=== PATIENT | female | born 1960 | race Caucasian/White ===

== ENCOUNTER 2016-10-19 09:28 | Inpatient (IN) | payer BC, MEDICARE ==
[2016-10-19] MEDS ORDERED: DUONEB 0.5-3 MG/3 ml Neb IH ONE (16:32)
[2016-10-19] MEDS: Sodium Chloride 0.9% 1000 ML 1,000 ML IV SCH (16:37)
[2016-10-19 17:01] LABS: BASOPHIL % 0.2 % (0.0-0.4); Granulocytes % 78.2 % (36.0-66.0); Lymphocytes % 12.9 % (24.0-44.0); Mean Cell Volume 92.5 fl (78-100); Mean Corpuscular Hemoglobin 29.9 pg (26-32); Mean Platelet Volume 8.7 fl (6-9.5); Monocytes % 7.7 % (0.0-12.0); Platelet Count 301 K/mm3 (150-450); Red Blood Count 4.28 M/mm3 (4.1-5.4); Red Cell Distribution Width 13.1 % (11.5-14.0); White Blood Count 9.4 K/mm3 (4.0-10.5)
[2016-10-19] MEDS: DUONEB 0.5-3 MG/3 ml Neb IH SCH (17:18)
[2016-10-19 17:42] LABS: ALBUMIN 3.7 g/dL (3.4-5.0); ALKALINE PHOSPHATASE 130 U/L (46-116); ANION GAP 11.7 MEQ/L (5-15); BLOOD UREA NITROGEN 10 mg/dL (9-20); CHLORIDE 98 mEq/L (98-107); Carbon Dioxide 30.8 mEq/L (21-32); Glucose 106 MG/DL (70-110); Potassium 3.8 mEq/L (3.5-5.1); SGOT/AST 20 U/L (15-37); SGPT/ALT 38 U/L (12-78); SODIUM 137 mEq/L (136-145); Total Protein 8.6 gm/dL (6.4-8.2)
[2016-10-19] MEDS: TYLENOL 325 MG PO PRN (18:16)
[2016-10-19] MEDS: Zithromax 500 MG/ 250 ML NaCl Premix 500 MG/250 ML IVPB IV SCH (18:22)
[2016-10-19] MEDS ORDERED: Zithromax 500 MG/ 250 ML NaCl Premix 500 MG/250 ML IVPB IV ONE (18:22)
[2016-10-19] MEDS ORDERED: PROVENTIL 2.5 MG/3 ML NEB IH PRN (19:55)
[2016-10-19] MEDS ORDERED: Ambien 10 MG PO SCH (22:00)
[2016-10-19] MEDS: MAG-OX 400 PO SCH (23:04)
[2016-10-19] MEDS: PATIENT OWN MEDICATION PO SCH ×4 (23:38→23:40)
[2016-10-20] MEDS: TYLENOL 325 MG PO PRN ×2 (00:10→19:57)
[2016-10-20] MEDS: DUONEB 0.5-3 MG/3 ml Neb IH SCH ×4 (05:49→19:57)
[2016-10-20] MEDS: MAG-OX 400 PO SCH ×2 (08:46→22:20)
[2016-10-20] MEDS: Wellbutrin XL 150 MG PO SCH (08:47)
[2016-10-20] MEDS: hydroDIURIL 25 MG PO SCH (08:47)
[2016-10-20] MEDS: Protonix 40MG Tablet PO SCH (08:47)
[2016-10-20] MEDS: ROCEPHIN 1 Gm-D5w 50 ml Bag** 1 G/50 ML IVPB IV SCH (08:48)
--- NOTE | 2016-10-20 08:51 | XRAY ---
Indication: Hypoxia. Acute bronchitis. Comparison: July 01, 2016. PA/lateral chest demonstrates new subtle bilateral perihilar interstitial alveolar opacities without consolidation/large effusion. Stable left lung calcified granuloma and spinal stimulator leads. Heart is not enlarged.
--- NOTE | 2016-10-20 09:38 | PCM.HP ---
History of Present Illness - Chief Complaint Chief Complaint: Hypoxia, Acute Bronchitis History of Present Illness: is a 56 year old female who has been sick since 10/06/16. Started with congestion and cough, cough prod of clear to yellow then green/mcgovern sputum. Having a hard time coughing things up now. Unaware of fever at home, but 100.3 when she saw TIMBER CUTTER yesterday in office. Directly admitted for pneumonia. Coughed all night. - Review of Systems Constitutional: Fever Respiratory: Cough, Short Of Breath Cardiac: Edema (chronic) All Other Systems: Reviewed and Negative Medications & Allergies Home Medications: Home Medication List Acetaminophen [Tylenol Extra Strength] 500 mg PO TID 03/31/14 [History Confirmed 10/19/16] Biotin [Efrain Biotin] 10,000 mcg PO DAILY 03/31/14 [History Confirmed 10/19/16] Bupropion HCl [Wellbutrin Xl] 300 mg PO DAILY 03/31/14 [History Confirmed ] Carboxymethylcellulos/Glycerin [[facility] Lubricating Eye Drops] 0.4 ml OP UD PRN [History Confirmed 10/19/16] Cephalexin Mh 500 mg [Keflex 500 mg] 500 mg PO UD PRN 03/31/14 [History Confirmed 10/19/16] Cholecalciferol (Vitamin D3) [Vitamin D-3] 1,000 unit PO BID 03/31/14 [History Confirmed 10/19/16] Duloxetine HCl [Cymbalta] 60 mg PO EVENING MEAL 03/31/14 [History Confirmed 09/30] Fluticasone Propionate [Flonase NASAL] 16 gm NS DAILY PRN 03/31/14 [ History Confirmed 10/19/16] Hydroxychloroquine Sulfate [Plaquenil] 200 mg PO BID 03/31/14 [History Confirmed 10/19/16] Hyoscyamine Sulfate 0.125 mg [Anaspaz 0.125 mg] 0.125 mg SL QID PRN [History Confirmed 10/19/16] Magnesium Oxide 400 mg [Mag-Ox 400] 400 mg PO BID 03/31/14 [History Confirmed 10/19/16] Menthol/Camphor [Mentholatum Ointment] 30 gm TP DAILY PRN PRN 03/31/14 [History Confirmed 10/19/16] Metaxalone [Skelaxin] 400 mg PO TID PRN 03/31/14 [History Confirmed 10/19/16] Multivitamin [Oio-Koldql-Ayzch] 1 each PO DAILY 03/31/14 [History Confirmed 09/30] Naratriptan HCl [Naratriptan] 2.5 mg PO DAILY PRN PRN 03/31/14 [History Confirmed 10/19/16] PANTOPRAZOLE 40 mg Tablet [Protonix 40MG Tablet] 40 mg PO DAILY 03/31/14 [ History Confirmed 10/19/16] Pilocarpine HCl [Salagen] 7.5 mg PO QID 03/31/14 [History Confirmed 10/19/16] Potassium Chloride 20 Meq Tab [Potassium Chloride 20 MEQ TABLET] 20 meq PO DAILY 03/31/14 [History Confirmed 10/19/16] Pravastatin Sodium 40 mg PO QHS 03/31/14 [History Confirmed 10/19/16] Saliva Substitution Combo No.5 [Neutrasal] 538 mg MM QID 03/31/14 [History Confirmed 10/19/16] Sodium Chloride [Saline [place]] 60 ml MC DAILY PRN PRN 03/31/14 [History Confirmed 10/19/16] Sodium Fluoride/Potassium Nit [Prevident 5000 Sensitive Paste] 100 ml DT BID [History Confirmed 10/19/16] Sumatriptan Succinate [Imitrex] 6 mg SQ DAILY PRN PRN 03/31/14 [History Confirmed 10/19/16] Timolol Maleate 0.25% Eye [Timolol 0.25% Opth Esperanza 5 ML] 1 drop OP BID [History Confirmed 10/19/16] Triamcinolone Acetonide 0.1% [Kenalog 0.1% Ointment] 15 gm TP BID PRN 03/31 [History Confirmed 10/19/16] Zolpidem Tartrate [Ambien Cr] 12.5 mg PO HS 03/31/14 [History Confirmed 10/19/16 ] Ferrous Sulfate 325 mg PO EVENING MEAL 05/22/14 [History Confirmed 10/19/16] Diclofenac Sodium [Voltaren] 2 gr TOP QID PRN 10/19/16 [History Confirmed ] Hydrochlorothiazide 12.5 mg PO DAILY 10/19/16 [History Confirmed 10/19/16] Sodium Chloride [Shahla-128] 1 g OP DAILY PRN PRN 10/19/16 [History Confirmed 09/30] Tamsulosin HCl 0.4 mg PO LUNCH 10/19/16 [History Confirmed 10/19/16] Allergies/Adverse Reactions: Allergies Allergy/AdvReac Type Severity Reaction Status Date / Time amoxicillin trihydrate Allergy Verified 05/22/14 17:13 [From Augmentin] benzonatate Allergy Verified 05/22/14 17:13 [From Tessalon Perles] cefazolin sodium [From Ancef] Allergy Verified 05/22/14 17:13 diflunisal [From Dolobid] Allergy Verified 05/22/14 17:13 oxycodone HCl [From Percocet] Allergy Verified 05/22/14 17:13 potassium clavulanate Allergy Verified 05/22/14 17:13 [From Augmentin] gabapentin [From Neurontin] AdvReac Verified 05/22/14 17:13 morphine AdvReac Verified 05/22/14 17:13 - Past Medical History Past Medical History: Yes Neurological History: Migraines ENT History: Glaucoma Cardiac History: High Cholesterol Respiratory History: Bronchitis, Pneumonia Endocrine Medical History: Other Musculoskelatal History: Arthritis, Fibromyalgia, Other GI Medical History: Irritable Bowel History: Other Pyscho-Social History: Depression, Other Reproductive Disorders: No Pertinent History Comment: HIP DYSPLASIA, arthralgia, myalgia. sjogrens, sometimes needs to cath herself d/t urinary retention (last done in 2011) [place] syndrome - Female History Are you now?: No - Past Surgical History Past Surgical History: Yes Neuro Surgical History: No Pertinent History Cardiac History: No Pertinent History Respiratory Surgery: No Pertinent History GI Surgical History: No Pertinent History Genitourinary Surgical Hx: No Pertinent History Musculskeletal Surgical Hx: Joint Replacement, Orthopedic Surgery Other Surgical History: STIMULATOR IMPLANT, sinus surgery, t&a, Hepatitis pt unsure what type . abd dilaudid pain pump. - Social History Smoking Status: Never smoker Exposure to second hand smoke: No Alcohol: None Drug Use: none - Physical Exam Vital Signs: Vital Signs - 24 hr Temp Pulse Resp BP Pulse Ox 10/20/16 08:00 20 10/20/16 07:06 98.0 F 80 20 133/60 94 L 10/20/16 04:30 80 28 H 94 L 10/20/16 04:00 65 19 94 L 10/20/16 00:00 98.3 F 93 H 20 138/67 94 L 10/19/16 20:00 98.1 F 92 H 19 120/60 98 10/19/16 19:58 89 22 96 10/19/16 17:21 99.1 F 105 H 24 137/69 89 L 10/19/16 16:30 96 H 24 88 L Oxygen-Last 24 hours O2 Percentage 4 Liters = 36% O2 Percentage 4 Liters = 36% O2 Percentage 4 Liters = 36% O2 Percentage 5 Liters = 40% O2 Percentage 4 Liters = 36% General Appearance: no apparent distress, other (coughs during exam) Neurologic Exam: alert, oriented x 3, cooperative Eye Exam: eyes nml inspection Neck Exam: normal inspection, non-tender, supple, No lymphadenopathy Respiratory Exam: normal breath sounds, wheezing (throughout), No crackles/rales , No rhonchi Cardiovascular Exam: regular rate/rhythm, normal heart sounds, No murmur Gastrointestinal/Abdomen Exam: soft, normal bowel sounds, mass (LLQ hard mass - pain pump), No tenderness, No distention Extremity Exam: pedal edema (trace LE edema bilat) Skin Exam: normal color, warm, dry Results - Labs Lab/Micro Results: Lab Results-Last 24 Hours 10/19/16 10/19/16 10/19/16 Range/Units 16:25 16:40 16:40 WBC 9.4 (4.0-10.5) K/mm3 RBC 4.28 (4.1-5.4) M/mm3 Hgb 12.8 (12.0-16.0) gm/dl Hct 39.6 (35-47) % MCV 92.5 (78-100) fl MCH 29.9 (26-32) pg MCHC 32.3 (32-36) g/dl RDW 13.1 (11.5-14.0) % Plt Count 301 (150-450) K/mm3 MPV 8.7 (6-9.5) fl Gran % 78.2 H (36.0-66.0) % Lymphocytes % 12.9 L (24.0-44.0) % Monocytes % 7.7 (0.0-12.0) % Eosinophils % 1.0 (0.00-5.0) % Basophils % 0.2 (0.0-0.4) % Basophils # 0.02 (0-0.4) Sodium 137 (136-145) mEq/L Potassium 3.8 (3.5-5.1) mEq/L Chloride 98 (98-107) mEq/L Carbon Dioxide 30.8 (21-32) mEq/L Anion Gap 11.7 (5-15) MEQ/L BUN 10 (9-20) mg/dL Creatinine 0.66 (0.55-1.30) mg/dl Estimated GFR > 60 ML/MIN Glucose 106 (70-110) MG/DL Lactic Acid 1.0 (0.4-2.0) Calcium 9.6 (8.5-10.1) mg/dL Total Bilirubin 0.40 (0.2-1.0) mg/dL AST 20 (15-37) U/L ALT 38 (12-78) U/L Alkaline Phosphatase 130 H (46-116) U/L NT-Pro-B Natriuret Pep 355 H (0-125) pg/ml Serum Total Protein 8.6 H (6.4-8.2) gm/dL Albumin 3.7 (3.4-5.0) g/dL Influenza Type A Ag (NEGATIVE) Influenza Type B Ag (NEGATIVE) RSV (PCR) (Negative) 10/19/16 Range/Units 16:40 WBC (4.0-10.5) K/mm3 RBC (4.1-5.4) M/mm3 Hgb (12.0-16.0) gm/dl Hct (35-47) % MCV (78-100) fl MCH (26-32) pg MCHC (32-36) g/dl RDW (11.5-14.0) % Plt Count (150-450) K/mm3 MPV (6-9.5) fl Gran % (36.0-66.0) % Lymphocytes % (24.0-44.0) % Monocytes % (0.0-12.0) % Eosinophils % (0.00-5.0) % Basophils % (0.0-0.4) % Basophils # (0-0.4) Sodium (136-145) mEq/L Potassium (3.5-5.1) mEq/L Chloride (98-107) mEq/L Carbon Dioxide (21-32) mEq/L Anion Gap (5-15) MEQ/L BUN (9-20) mg/dL Creatinine (0.55-1.30) mg/dl Estimated GFR ML/MIN Glucose (70-110) MG/DL Lactic Acid (0.4-2.0) Calcium (8.5-10.1) mg/dL Total Bilirubin (0.2-1.0) mg/dL AST (15-37) U/L ALT (12-78) U/L Alkaline Phosphatase (46-116) U/L NT-Pro-B Natriuret Pep (0-125) pg/ml Serum Total Protein (6.4-8.2) gm/dL Albumin (3.4-5.0) g/dL Influenza Type A Ag NEGATIVE (NEGATIVE) Influenza Type B Ag NEGATIVE (NEGATIVE) RSV (PCR) NEGATIVE (Negative) - Radiology Impressions Radiology Exams & Impressions: Radiology Procedures Category Date Time Status CHEST 2 VIEWS (PA AND LAT) Routine Exams 10/19/16 16:30 Completed - Other Procedures and Tests Respiratory Therapy 10/19/16 16:30 Oxygen NASAL CANNULA 2 lpm Respiratory Nebulizer Q6H 10/19/16 19:55 neb [Respiratory Nebulizer] PRN Assessment/Plan (1) Pneumonia Current Visit: Yes Status: Acute Qualifiers: Pneumonia type: due to unspecified organism Laterality: bilateral Lung location: unspecified part of lung Qualified Code(s): J18.9 - Pneumonia, unspecified organism Assessment & Plan: She is on IV rocephin and zithromax, day #2. With wheezing today; will add solumedrol IV. Code(s): J18.9 - PNEUMONIA, UNSPECIFIED ORGANISM (2) Hypoxia Current Visit: Yes Status: Acute Assessment & Plan: On O2 per NC; O2 sat 88% on RA when she came to med surg. Code(s): R09.02 - HYPOXEMIA
[2016-10-20] MEDS: PATIENT OWN MEDICATION PO SCH ×6 (09:40→22:23)
[2016-10-20] MEDS: solu-MEDROL 40 MG IV SCH ×2 (09:41→22:20)
[2016-10-20] MEDS: Tussionex Pennkinetic Susp PO SCH ×2 (09:41→22:20)
[2016-10-20] MEDS ORDERED: Ambien 10 MG PO PRN (09:44)
[2016-10-20] MEDS ORDERED: SODIUM CHLORIDE 1 GM OP PRN (09:58)
[2016-10-20] MEDS ORDERED: Flonase NASAL NS PRN (09:58)
[2016-10-20] MEDS ORDERED: NARATRIPTAN HCL 2.5 MG PO PRN (09:58)
[2016-10-20] MEDS ORDERED: MENTHOL TP PRN (09:58)
[2016-10-20] MEDS ORDERED: METAXALONE 400 MG PO PRN (09:58)
[2016-10-20] MEDS ORDERED: ANASPAZ 0.125 MG SL PRN (09:58)
[2016-10-20] MEDS ORDERED: SODIUM CHLORIDE MC PRN (09:58)
[2016-10-20] MEDS ORDERED: KENALOG 0.1% OINTMENT TP PRN (09:58)
[2016-10-20] MEDS ORDERED: [UNRECOGNIZED DRUG - OTHER] MC PRN (09:58)
[2016-10-20] MEDS ORDERED: Voltaren GEL TOP PRN (09:58)
[2016-10-20] MEDS ORDERED: CARBOXYMETHYLCELLULOSE OP PRN (09:58)
[2016-10-20] MEDS ORDERED: CAMPHOR TP PRN (09:58)
[2016-10-20] MEDS ORDERED: GLYCERIN OP PRN (09:58)
[2016-10-20] MEDS ORDERED: [UNRECOGNIZED DRUG - OTHER] OP PRN (09:58)
[2016-10-20] MEDS ORDERED: NON-FORMULARY ITEM (Potassium Chloride 20 Meq Tab [Potassium Chloride 20 Meq Tablet] 20 ME PO SCH (10:00)
[2016-10-20] MEDS ORDERED: Cymbalta 30 MG Capsule PO SCH (10:00)
[2016-10-20] MEDS ORDERED: BIOTIN 10000 MCG PO SCH (10:00)
[2016-10-20] MEDS ORDERED: Timolol 0.25% Opth Sol 5 ML OP SCH (10:00)
[2016-10-20] MEDS ORDERED: OCEAN Nasal Spray NS PRN (10:22)
[2016-10-20] MEDS ORDERED: Artificial Tears 15 ML OP PRN (10:23)
[2016-10-20] MEDS: Klor Con 10 MEQ PO SCH (10:43)
[2016-10-20] MEDS: Flomax 0.4 MG PO SCH ×2 (12:46→12:47)
[2016-10-20] MEDS: [UNRECOGNIZED DRUG - OTHER] DT SCH ×2 (13:54→22:25)
[2016-10-20] MEDS: SODIUM FLUORIDE DT SCH ×2 (13:54→22:25)
[2016-10-20] MEDS: [UNRECOGNIZED DRUG - OTHER] MM SCH ×4 (13:54→22:26)
[2016-10-20] MEDS: POTASSIUM NITRATE DT SCH ×2 (13:54→22:25)
[2016-10-20] MEDS: Sodium Chloride 0.9% 1000 ML 1,000 ML IV SCH (13:58)
[2016-10-20] MEDS: FEOSOL 325 MG PO SCH (17:24)
[2016-10-20] MEDS ORDERED: NON-FORMULARY ITEM (Pravastatin Sodium [Pravastatin Sodium] 40 MG) PO SCH (22:00)
[2016-10-20] MEDS: ZOCOR 20MG PO SCH (22:20)
[2016-10-20] MEDS: PATIENT OWN MEDICATION OP SCH (22:23)
[2016-10-21] MEDS: DUONEB 0.5-3 MG/3 ml Neb IH SCH ×4 (01:17→19:11)
[2016-10-21] MEDS: PATIENT OWN MEDICATION PO PRN ×2 (01:27→22:59)
[2016-10-21] MEDS: Sodium Chloride 0.9% 1000 ML 1,000 ML IV SCH (08:17)
--- NOTE | 2016-10-21 08:40 | PCM.NOTE ---
Date and Time: 10/21/16 0838 Subjective Assessment: patient still with significant cough and wheezing, no sputum production. still requiring oxygen Objective Exam General Appearance: no apparent distress, alert Respiratory Exam: wheezing Cardiovascular Exam: regular rate/rhythm, normal heart sounds Gastrointestinal/Abdomen Exam: soft, No tenderness, No mass Extremity Exam: normal inspection, normal range of motion OBJECTIVE DATA Vital Signs: Vital Signs - 24 hr Temp Pulse Resp BP Pulse Ox 10/21/16 08:00 99.3 F 88 20 129/72 92 L 10/21/16 07:04 98 H 20 93 L 10/21/16 04:00 98.9 F 78 18 126/57 94 L 10/21/16 01:17 93 H 15 96 10/21/16 00:00 21 10/20/16 23:35 97.6 F 60 21 134/64 95 10/20/16 20:30 96 10/20/16 20:00 19 10/20/16 19:57 76 23 97 10/20/16 19:53 98.7 F 86 19 134/80 98 10/20/16 16:00 18 10/20/16 15:59 98.0 F 82 18 133/61 95 10/20/16 13:09 88 22 96 10/20/16 12:00 18 10/20/16 11:37 98.5 F 83 18 127/60 97 Oxygen-Last 24 hours O2 Percentage 3 Liters = 32% O2 Percentage 3 Liters = 32% O2 Percentage 3 Liters = 32% O2 Percentage 4 Liters = 36% O2 Percentage 4 Liters = 36% O2 Percentage 4 Liters = 36% Pain Assessment - Last Documented Pain Intensity 4 Pain Scale Used [facility] Intake and Output: Intake & Output 10/18/16 10/19/16 10/20/16 10/21/16 11:59 11:59 11:59 11:59 Intake Total 2212 2160 Output Total 1999 1300 Balance 212 860 Weight 88.088 kg Radiology Exams: Radiology Procedures Category Date Time Status CHEST 2 VIEWS (PA AND LAT) Routine Exams 10/19/16 16:30 Completed Assessment/Plan (1) Pneumonia Current Visit: Yes Status: Acute Qualifiers: Pneumonia type: due to unspecified organism Laterality: bilateral Lung location: unspecified part of lung Qualified Code(s): J18.9 - Pneumonia, unspecified organism Assessment & Plan: continue rocephin and zithromax, IV solumedrol and nebulizer treatments Code(s): J18.9 - PNEUMONIA, UNSPECIFIED ORGANISM (2) Hypoxia Current Visit: Yes Status: Acute Code(s): R09.02 - HYPOXEMIA
[2016-10-21] MEDS: Klor Con 10 MEQ PO SCH (08:53)
[2016-10-21] MEDS: Tussionex Pennkinetic Susp PO SCH ×2 (08:54→21:19)
[2016-10-21] MEDS: Protonix 40MG Tablet PO SCH (08:54)
[2016-10-21] MEDS: solu-MEDROL 40 MG IV SCH ×4 (08:54→22:59)
[2016-10-21] MEDS: MAG-OX 400 PO SCH ×2 (08:54→21:21)
[2016-10-21] MEDS: PATIENT OWN MEDICATION OP SCH ×2 (08:54→21:26)
[2016-10-21] MEDS: hydroDIURIL 25 MG PO SCH (08:54)
[2016-10-21] MEDS: ROCEPHIN 1 Gm-D5w 50 ml Bag** 1 G/50 ML IVPB IV SCH (08:54)
[2016-10-21] MEDS: PATIENT OWN MEDICATION PO SCH ×6 (08:55→22:58)
[2016-10-21] MEDS: Wellbutrin XL 150 MG PO SCH (08:55)
[2016-10-21] MEDS: [UNRECOGNIZED DRUG - OTHER] MM SCH (09:06)
[2016-10-21] MEDS ORDERED: MEDICATION INTERVENTION MC PRN ×3 (09:53→10:50)
[2016-10-21] MEDS: ENOXAPARIN SODIUM SQ SCH (11:02)
[2016-10-21] MEDS: Zithromax 500 MG/ 250 ML NaCl Premix 500 MG/250 ML IVPB IV SCH (11:02)
[2016-10-21] MEDS: SODIUM FLUORIDE DT SCH (11:07)
[2016-10-21] MEDS: [UNRECOGNIZED DRUG - OTHER] DT SCH (11:07)
[2016-10-21] MEDS: POTASSIUM NITRATE DT SCH (11:07)
[2016-10-21] MEDS: Flomax 0.4 MG PO SCH (12:27)
[2016-10-21] MEDS: [UNRECOGNIZED DRUG - SUPPLY] MM SCH ×3 (12:30→21:24)
[2016-10-21] MEDS: FEOSOL 325 MG PO SCH (17:32)
[2016-10-21] MEDS: ZOCOR 20MG PO SCH (21:20)
[2016-10-21] MEDS: Cymbalta 30 MG Capsule PO SCH (21:21)
[2016-10-22] MEDS: DUONEB 0.5-3 MG/3 ml Neb IH SCH ×4 (01:06→19:35)
[2016-10-22] MEDS: solu-MEDROL 40 MG IV SCH ×3 (06:11→18:05)
[2016-10-22] MEDS: Sodium Chloride 0.9% 1000 ML 1,000 ML IV SCH (06:20)
--- NOTE | 2016-10-22 07:49 | PCM.NOTE ---
Date and Time: 10/22/1647 Subjective Assessment: patient still having significant cough but has improved, tolerating activity better. Objective Exam General Appearance: no apparent distress, alert Respiratory Exam: crackles/rales, wheezing Cardiovascular Exam: regular rate/rhythm, normal heart sounds Gastrointestinal/Abdomen Exam: soft, No tenderness, No mass Extremity Exam: normal inspection, normal range of motion OBJECTIVE DATA Vital Signs: Vital Signs - 24 hr Temp Pulse Resp BP Pulse Ox 10/22/16 07:37 98.0 F 67 17 124/58 97 10/22/16 07:00 78 18 97 10/22/16 04:00 98.4 F 86 20 123/82 94 L 10/22/16 01:06 85 22 95 10/22/16 00:00 98.9 F 65 27 H 125/57 96 10/21/16 20:00 17 10/21/16 19:57 98.4 F 77 17 130/59 93 L 10/21/16 19:11 82 22 94 L 10/21/16 16:00 97.7 F 74 18 124/59 94 L 10/21/16 13:06 91 H 20 95 10/21/16 12:00 98.1 F 78 20 114/58 93 L 10/21/16 08:00 99.3 F 88 20 129/72 92 L Oxygen-Last 24 hours O2 Percentage 3 Liters = 32% O2 Percentage 3 Liters = 32% O2 Percentage 3 Liters = 32% O2 Percentage 3 Liters = 32% O2 Percentage 3 Liters = 32% O2 Percentage 3 Liters = 32% Pain Assessment - Last Documented Pain Intensity 4 Pain Scale Used [facility] Intake and Output: Intake & Output 10/19/16 10/20/16 10/21/16 10/22/16 11:59 11:59 11:59 11:59 Intake Total 2212 2160 3597 Output Total 1999 1849 5100 Balance 212 310 -1503 Weight 88.088 kg Assessment/Plan (1) Pneumonia Current Visit: Yes Status: Acute Qualifiers: Pneumonia type: due to unspecified organism Laterality: bilateral Lung location: unspecified part of lung Qualified Code(s): J18.9 - Pneumonia, unspecified organism Assessment & Plan: continue rocephin and zithromax, nebs and has significant bronchospasm, improving on solu medrol Code(s): J18.9 - PNEUMONIA, UNSPECIFIED ORGANISM (2) Hypoxia Current Visit: Yes Status: Acute Code(s): R09.02 - HYPOXEMIA
[2016-10-22] MEDS: MAG-OX 400 PO SCH ×2 (08:14→22:33)
[2016-10-22] MEDS: hydroDIURIL 25 MG PO SCH (08:14)
[2016-10-22] MEDS: Zithromax 500 MG/ 250 ML NaCl Premix 500 MG/250 ML IVPB IV SCH (08:14)
[2016-10-22] MEDS: TYLENOL EXTRA STRENGTH 500 MG PO PRN (08:15)
[2016-10-22] MEDS: ENOXAPARIN SODIUM SQ SCH (08:15)
[2016-10-22] MEDS: Tussionex Pennkinetic Susp PO SCH ×2 (08:15→22:34)
[2016-10-22] MEDS: Protonix 40MG Tablet PO SCH (08:16)
[2016-10-22] MEDS: PATIENT OWN MEDICATION PO SCH ×5 (08:16→16:51)
[2016-10-22] MEDS: PATIENT OWN MEDICATION OP SCH ×2 (08:17→22:34)
[2016-10-22] MEDS: [UNRECOGNIZED DRUG - SUPPLY] MM SCH ×4 (08:18→22:26)
[2016-10-22] MEDS: Wellbutrin XL 150 MG PO SCH (08:19)
[2016-10-22] MEDS: Klor Con 10 MEQ PO SCH (08:21)
[2016-10-22] MEDS: ROCEPHIN 1 Gm-D5w 50 ml Bag** 1 G/50 ML IVPB IV SCH (10:37)
[2016-10-22] MEDS: Flomax 0.4 MG PO SCH (11:43)
[2016-10-22] MEDS: FEOSOL 325 MG PO SCH (16:50)
[2016-10-22] MEDS: Cymbalta 30 MG Capsule PO SCH (22:32)
[2016-10-22] MEDS: ZOCOR 20MG PO SCH (22:34)
[2016-10-23] MEDS: DUONEB 0.5-3 MG/3 ml Neb IH SCH ×4 (01:14→19:32)
[2016-10-23] MEDS: PATIENT OWN MEDICATION PO PRN (01:32)
[2016-10-23] MEDS: solu-MEDROL 40 MG IV SCH ×5 (01:41→23:55)
[2016-10-23] MEDS: PATIENT OWN MEDICATION PO SCH ×7 (01:44→22:27)
[2016-10-23 05:45] LABS: Mean Cell Volume 94.1 fl (78-100); Mean Corpuscular Hemoglobin 29.4 pg (26-32); Mean Platelet Volume 8.3 fl (6-9.5); Platelet Count 356 K/mm3 (150-450); Red Blood Count 4.08 M/mm3 (4.1-5.4); Red Cell Distribution Width 13.2 % (11.5-14.0); White Blood Count 12.8 K/mm3 (4.0-10.5)
[2016-10-23 06:10] LABS: ALBUMIN 3.2 g/dL (3.4-5.0); ALKALINE PHOSPHATASE 92 U/L (46-116); ANION GAP 11.4 MEQ/L (5-15); BLOOD UREA NITROGEN 14 mg/dL (9-20); CHLORIDE 104 mEq/L (98-107); Carbon Dioxide 30.4 mEq/L (21-32); Glucose 127 MG/DL (70-110); SGOT/AST 14 U/L (15-37); SGPT/ALT 32 U/L (12-78); SODIUM 142 mEq/L (136-145); Total Protein 7.3 gm/dL (6.4-8.2)
[2016-10-23 06:29] LABS: Platelet Estimate NORMAL (NORMAL); Total Cells Counted 100
[2016-10-23] MEDS: TYLENOL 325 MG PO PRN (07:48)
--- NOTE | 2016-10-23 08:06 | PCM.NOTE ---
Date and Time: 10/23/16804 Subjective Assessment: patient reports continued but slow improvement, still has significant fits of coughing but seems to be able to tolerate more activity and breathe more easily Objective Exam General Appearance: no apparent distress, alert Respiratory Exam: rhonchi, wheezing Cardiovascular Exam: regular rate/rhythm, normal heart sounds Gastrointestinal/Abdomen Exam: soft, No tenderness, No mass Extremity Exam: normal inspection, normal range of motion OBJECTIVE DATA Vital Signs: Vital Signs - 24 hr Temp Pulse Resp BP Pulse Ox 10/23/16 07:08 68 16 97 10/23/16 04:00 97.8 F 74 20 142/66 92 L 10/23/16 01:14 71 20 94 L 10/23/16 00:00 98.8 F 83 20 139/65 96 10/22/16 20:00 18 10/22/16 19:36 72 20 96 10/22/16 19:32 98.5 F 75 18 126/60 94 L 10/22/16 16:00 98.8 F 91 H 18 134/61 96 10/22/16 13:23 79 18 95 10/22/16 12:00 98.0 F 85 20 124/75 96 10/22/16 10:26 92 L Oxygen-Last 24 hours O2 Percentage 3 Liters = 32% O2 Percentage 3 Liters = 32% O2 Percentage 3 Liters = 32% O2 Percentage 2 Liters = 28% O2 Percentage 2 Liters = 28% Pain Assessment - Last Documented Pain Intensity 5 Pain Scale Used 0-10 Pain Scale Intake and Output: Intake & Output 10/20/16 10/21/16 10/22/16 10/23/16 11:59 11:59 11:59 11:59 Intake Total 2212 2160 3897 3019 Output Total 1999 4080 5100 4650 Balance 212 310 1203 1631 Weight 88.088 kg Lab Results: Lab Results-Last 24 Hours 10/23/16 10/23/16 Range/Units 05:20 05:20 WBC 12.8 H (4.0-10.5) K/mm3 RBC 4.08 L (4.1-5.4) M/mm3 Hgb 12.0 (12.0-16.0) gm/dl Hct 38.4 (35-47) % MCV 94.1 (78-100) fl MCH 29.4 (26-32) pg MCHC 31.3 L (32-36) g/dl RDW 13.2 (11.5-14.0) % Plt Count 356 (150-450) K/mm3 MPV 8.3 (6-9.5) fl Segmented Neutrophils 75 H (36.0-66.0) % Lymphocytes (Manual) 22 L (24-44) % Monocytes (Manual) 3 (0.0-12.0) % Differential Comment NORMAL Platelet Estimate NORMAL (NORMAL) Sodium 142 (136-145) mEq/L Potassium 4.0 (3.5-5.1) mEq/L Chloride 104 (98-107) mEq/L Carbon Dioxide 30.4 (21-32) mEq/L Anion Gap 11.4 (5-15) MEQ/L BUN 14 (9-20) mg/dL Creatinine 0.64 (0.55-1.30) mg/dl Estimated GFR > 60 ML/MIN Glucose 127 H (70-110) MG/DL Calcium 9.2 (8.5-10.1) mg/dL Total Bilirubin 0.20 (0.2-1.0) mg/dL AST 14 L (15-37) U/L ALT 32 (12-78) U/L Alkaline Phosphatase 92 (46-116) U/L Serum Total Protein 7.3 (6.4-8.2) gm/dL Albumin 3.2 L (3.4-5.0) g/dL Assessment/Plan (1) Pneumonia Current Visit: Yes Status: Acute Qualifiers: Pneumonia type: due to unspecified organism Laterality: bilateral Lung location: unspecified part of lung Qualified Code(s): J18.9 - Pneumonia, unspecified organism Assessment & Plan: continue rocephin/zithromax, certainly seems to have element of bronchospasm and currently on solumedrol 40mg IV q6hrs Code(s): J18.9 - PNEUMONIA, UNSPECIFIED ORGANISM (2) Hypoxia Current Visit: Yes Status: Acute Code(s): R09.02 - HYPOXEMIA
[2016-10-23] MEDS: Sodium Chloride 0.9% 1000 ML 1,000 ML IV SCH (08:16)
[2016-10-23] MEDS: Protonix 40MG Tablet PO SCH (08:28)
[2016-10-23] MEDS: Klor Con 10 MEQ PO SCH (08:28)
[2016-10-23] MEDS: ENOXAPARIN SODIUM SQ SCH (08:28)
[2016-10-23] MEDS: MAG-OX 400 PO SCH ×2 (08:29→22:25)
[2016-10-23] MEDS: hydroDIURIL 25 MG PO SCH (08:29)
[2016-10-23] MEDS: Tussionex Pennkinetic Susp PO SCH ×2 (08:29→22:29)
[2016-10-23] MEDS: Zithromax 500 MG/ 250 ML NaCl Premix 500 MG/250 ML IVPB IV SCH (08:29)
[2016-10-23] MEDS: ROCEPHIN 1 Gm-D5w 50 ml Bag** 1 G/50 ML IVPB IV SCH (08:30)
[2016-10-23] MEDS: PATIENT OWN MEDICATION OP SCH ×2 (08:32→22:28)
[2016-10-23] MEDS: Wellbutrin XL 150 MG PO SCH (08:33)
[2016-10-23] MEDS: [UNRECOGNIZED DRUG - SUPPLY] MM SCH ×4 (08:38→22:29)
[2016-10-23] MEDS: Flomax 0.4 MG PO SCH (12:23)
[2016-10-23] MEDS: LEVOFLOXACIN 750MG/150ML D5W 750 MG/150 ML BAG IV SCH (12:23)
[2016-10-23] MEDS: TYLENOL EXTRA STRENGTH 500 MG PO PRN (16:17)
[2016-10-23] MEDS: FEOSOL 325 MG PO SCH (17:02)
[2016-10-23] MEDS: Nystatin SUSPENSION 60 ML PO SCH ×2 (17:03→22:25)
[2016-10-23] MEDS: Cymbalta 30 MG Capsule PO SCH (22:24)
[2016-10-23] MEDS: ZOCOR 20MG PO SCH (22:30)
[2016-10-24] MEDS: DUONEB 0.5-3 MG/3 ml Neb IH SCH ×3 (01:21→13:25)
[2016-10-24] MEDS: solu-MEDROL 40 MG IV SCH ×2 (05:48→12:30)
[2016-10-24] MEDS: TYLENOL 325 MG PO PRN (05:48)
[2016-10-24] MEDS: PATIENT OWN MEDICATION PO SCH ×3 (08:19→12:31)
[2016-10-24] MEDS: MAG-OX 400 PO SCH (09:44)
[2016-10-24] MEDS: ENOXAPARIN SODIUM SQ SCH (09:44)
[2016-10-24] MEDS: Nystatin SUSPENSION 60 ML PO SCH ×2 (09:44→12:30)
[2016-10-24] MEDS: LEVOFLOXACIN 750MG/150ML D5W 750 MG/150 ML BAG IV SCH (09:44)
[2016-10-24] MEDS: Tussionex Pennkinetic Susp PO SCH (09:44)
[2016-10-24] MEDS: Wellbutrin XL 150 MG PO SCH (09:44)
[2016-10-24] MEDS: Protonix 40MG Tablet PO SCH (09:45)
[2016-10-24] MEDS: Klor Con 10 MEQ PO SCH (09:45)
[2016-10-24] MEDS: [UNRECOGNIZED DRUG - SUPPLY] MM SCH ×2 (09:45→12:31)
[2016-10-24] MEDS: hydroDIURIL 25 MG PO SCH (09:45)
[2016-10-24] MEDS: PATIENT OWN MEDICATION OP SCH (09:45)
[2016-10-24 12:14] VITALS: BP 135/61
[2016-10-24] MEDS: Flomax 0.4 MG PO SCH (12:30)
[2016-10-24 13:26] VITALS: PULSE 75
--- NOTE | 2016-10-24 15:59 | PCM.DCORD ---
- Discharge Discharge Date: 10/24/16 Disposition: Home, Self-Care Condition: Stable Prescriptions: New Prednisone 20 mg [Deltasone 20 mg] 20 mg PO DAILY #11 tablet Levofloxacin [Levaquin] 500 mg PO DAILY #5 tablet Albuterol Sulfate [Proair Hfa] 2 puff IH Q4H PRN #1 [id number] PRN Reason: Shortness Of Breath/Wheezing Continue Bupropion HCl [Wellbutrin Xl] 300 mg PO DAILY Biotin [Efrain Biotin] 10,000 mcg PO DAILY Acetaminophen [Tylenol Extra Strength] 500 mg PO TID Sodium Fluoride/Potassium Nit [Prevident 5000 Sensitive Paste] 100 ml DT BID Duloxetine HCl [Cymbalta] 60 mg PO EVENING MEAL Cholecalciferol (Vitamin D3) [Vitamin D3] 1,000 unit PO BID Fluticasone Propionate [Flonase NASAL] 16 gm NS DAILY PRN PRN Reason: Allergies Hyoscyamine Sulfate 0.125 mg [Anaspaz 0.125 mg] 0.125 mg SL QID PRN PRN Reason: spasm Hydroxychloroquine Sulfate [Plaquenil] 200 mg PO BID Sodium Chloride [Saline [place]] 60 ml MC DAILY PRN PRN PRN Reason: dry nose Saliva Substitution Combo No.5 [Neutrasal] 538 mg MM QID Pravastatin Sodium 40 mg PO QHS Potassium Chloride 20 Meq Tab [Potassium Chloride 20 MEQ TABLET] 20 meq PO DAILY Pilocarpine HCl [Salagen] 7.5 mg PO QID PANTOPRAZOLE 40 mg Tablet [Protonix 40MG Tablet] 40 mg PO DAILY Naratriptan HCl [Naratriptan] 2.5 mg PO DAILY PRN PRN PRN Reason: migraine Multivitamin [[id number]-Cisgnl-Uxydj] 1 each PO DAILY Metaxalone [Skelaxin] 400 mg PO TID PRN PRN Reason: Muscle Spasms Menthol/Camphor [Mentholatum Ointment] 30 gm TP DAILY PRN PRN PRN Reason: dry lips Magnesium Oxide 400 mg [Mag-Ox 400] 400 mg PO BID Zolpidem Tartrate [Ambien Cr] 12.5 mg PO HS Carboxymethylcellulos/Glycerin [[facility]vs Lubricating Eye Drops] 0.4 ml OP UD PRN PRN Reason: dry eyes Triamcinolone Acetonide 0.1% [Kenalog 0.1% Ointment] 15 gm TP BID PRN PRN Reason: Redness/Irritation Sumatriptan Succinate [Imitrex] 6 mg SQ DAILY PRN PRN PRN Reason: migraine Ferrous Sulfate 325 mg PO EVENING MEAL Diclofenac Sodium [Voltaren] 2 gr TOP QID PRN PRN Reason: Pain Sodium Chloride [Shahla-128] 1 g OP DAILY PRN PRN PRN Reason: Allergies Tamsulosin HCl 0.4 mg PO LUNCH Hydrochlorothiazide 12.5 mg PO DAILY Timolol Maleate 0.5% Eye [Timoptic 0.5% 5 ml Ophthalmic] 1 drop OP BID Discontinued Cephalexin Mh 500 mg [Keflex 500 mg] 500 mg PO UD PRN PRN Reason: prophylaxis Follow up with: JORDYN SHEA MD [Primary Care Provider] - 1 Week Forms: Patient Portal Information
[2016-10-24 16:24] VITALS: O2SAT 93
--- NOTE | 2016-10-24 16:37 | PCM.DS ---
Discharge Summary Date of Admission: 10/20/16 09:28 Date of Discharge: 10/24/16 Admitting Physician: JORDYN SHEA Primary Care Provider: JORDYN SHEA Allergies Allergies amoxicillin trihydrate [From Augmentin] Allergy (Verified 05/22/14 17:13) benzonatate [From Tessalon Perles] Allergy (Verified 05/22/14 17:13) cefazolin sodium [From Ancef] Allergy (Verified 05/22/14 17:13) diflunisal [From Dolobid] Allergy (Verified 05/22/14 17:13) oxycodone HCl [From Percocet] Allergy (Verified 05/22/14 17:13) potassium clavulanate [From Augmentin] Allergy (Verified 05/22/14 17:13) gabapentin [From Neurontin] Adverse Reaction (Verified 05/22/14 17:13) morphine Adverse Reaction (Verified 05/22/14 17:13) Hospital Summary - Hospital Course Hospital Course: she was seen in outpatient by [facility] and admitted followed by Dr. Jeong then Dr. Shea and treated with Rocephin and azithromycin steroids and albuterol inhalation and oxygen for pneumonia and showed slow improvement. Her fever resolved and sputum culture grew MSSA at that point her medication was changed to levquin and she continued to show some slow progressive improvement and was weaned off oxygen the day of discharge and walked in the farr with oxygen only dropping to 92%. She was feeling better and discharged home to finish coarse of levaquin and taper of steroids as well as new Rx for albuterol inhaler. - Vitals & Intake/Output Vital Signs: Vital Signs Temperature 98 F 10/24/16 12:13 Pulse Rate 75 10/24/16 13:00 Respiratory Rate 20 10/24/16 16:23 Blood Pressure 135/61 10/24/16 12:13 O2 Sat by Pulse Oximetry 93 L 10/24/16 16:23 Oxygen-Last Documented O2 Percentage 2 Liters = 28% Intake & Output: Intake & Output 10/22/16 10/23/16 10/24/16 10/25/16 11:59 11:59 11:59 11:59 Intake Total 3897 3439 4050 420 Output Total 5100 4650 3700 600 Balance -1203 -1211 350 -180 Weight 88.088 kg - Lab Result Diagrams: 10/23/16 05:20 10/23/16 05:20 Micro Results-Entire Visit: Microbiology 10/20/16 11:00 Gram Stain - Final Other - Expectorant Sputum Culture - Final Staphylococcus Aureus 10/19/16 16:45 Blood Culture - Preliminary Blood NO GROWTH TO DATE 10/19/16 16:40 Blood Culture - Preliminary Blood NO GROWTH TO DATE - Procedures and Test Procedures and Tests throughout Hospitalization: Therapy Orders & Screens 10/19/16 16:30 Oxygen NASAL CANNULA 2 lpm Comment: to keep sats >92% while awake Diagnosis: Hypoxia, Acute Bronchitis Respiratory Nebulizer Q6H Comment: Diagnosis: Hypoxia, Acute Bronchitis Name of medication?: alb/ipratropium 2.5/0.5mg INH every 6 hours 10/19/16 19:55 neb [Respiratory Nebulizer] PRN Comment: Diagnosis: Hypoxia, Acute Bronchitis Discharge Exam General Appearance: no apparent distress, alert Neurologic Exam: alert, oriented x 3, cooperative, normal mood/affect, nml cerebellar function, sensation nml, No motor deficits Skin Exam: normal color, warm, dry Eye Exam: PERRL, EOMI, eyes nml inspection Ears, Nose, Throat Exam: normal ENT inspection, pharynx normal, moist mucous membranes Neck Exam: normal inspection, non-tender, supple, full range of motion Respiratory Exam: rhonchi, wheezing, No respiratory distress Cardiovascular Exam: regular rate/rhythm, normal heart sounds Gastrointestinal/Abdomen Exam: soft, No tenderness, No mass Extremity Exam: normal inspection, normal range of motion Back Exam: normal inspection, normal range of motion, No CVA tenderness, No vertebral tenderness Pelvic Exam: deferred Rectal Exam: deferred Final Diagnosis/Problem List - Final Discharge Diagnosis/Problem (1) Pneumonia Current Visit: Yes Status: Acute (2) Acute bronchitis Current Visit: Yes Status: Acute (3) Hypoxia Current Visit: Yes Status: Acute - Discharge Discharge Date: 10/24/16 Disposition: Home, Self-Care Condition: Stable Prescriptions: New Prednisone 20 mg [Deltasone 20 mg] 20 mg PO DAILY #11 tablet Levofloxacin [Levaquin] 500 mg PO DAILY #5 tablet Albuterol Sulfate [Proair Hfa] 2 puff IH Q4H PRN #1 [id number].[id number] PRN Reason: Shortness Of Breath/Wheezing Continue Bupropion HCl [Wellbutrin Xl] 300 mg PO DAILY Biotin [Efrain Biotin] 10,000 mcg PO DAILY Acetaminophen [Tylenol Extra Strength] 500 mg PO TID Sodium Fluoride/Potassium Nit [Prevident 5000 Sensitive Paste] 100 ml DT BID Duloxetine HCl [Cymbalta] 60 mg PO EVENING MEAL Cholecalciferol (Vitamin D3) [Vitamin D3] 1,000 unit PO BID Fluticasone Propionate [Flonase NASAL] 16 gm NS DAILY PRN PRN Reason: Allergies Hyoscyamine Sulfate 0.125 mg [Anaspaz 0.125 mg] 0.125 mg SL QID PRN PRN Reason: spasm Hydroxychloroquine Sulfate [Plaquenil] 200 mg PO BID Sodium Chloride [Saline [place]] 60 ml MC DAILY PRN PRN PRN Reason: dry nose Saliva Substitution Combo No.5 [Neutrasal] 538 mg MM QID Pravastatin Sodium 40 mg PO QHS Potassium Chloride 20 Meq Tab [Potassium Chloride 20 MEQ TABLET] 20 meq PO DAILY Pilocarpine HCl [Salagen] 7.5 mg PO QID PANTOPRAZOLE 40 mg Tablet [Protonix 40MG Tablet] 40 mg PO DAILY Naratriptan HCl [Naratriptan] 2.5 mg PO DAILY PRN PRN PRN Reason: migraine Multivitamin [Rqy-Macpan-Qmtop] 1 each PO DAILY Metaxalone [Skelaxin] 400 mg PO TID PRN PRN Reason: Muscle Spasms Menthol/Camphor [Mentholatum Ointment] 30 gm TP DAILY PRN PRN PRN Reason: dry lips Magnesium Oxide 400 mg [Mag-Ox 400] 400 mg PO BID Zolpidem Tartrate [Ambien Cr] 12.5 mg PO HS Carboxymethylcellulos/Glycerin [[employer] Lubricating Eye Drops] 0.4 ml OP UD PRN PRN Reason: dry eyes Triamcinolone Acetonide 0.1% [Kenalog 0.1% Ointment] 15 gm TP BID PRN PRN Reason: Redness/Irritation Sumatriptan Succinate [Imitrex] 6 mg SQ DAILY PRN PRN PRN Reason: migraine Ferrous Sulfate 325 mg PO EVENING MEAL Diclofenac Sodium [Voltaren] 2 gr TOP QID PRN PRN Reason: Pain Sodium Chloride [Shahla-128] 1 g OP DAILY PRN PRN PRN Reason: Allergies Tamsulosin HCl 0.4 mg PO LUNCH Hydrochlorothiazide 12.5 mg PO DAILY Timolol Maleate 0.5% Eye [Timoptic 0.5% 5 ml Ophthalmic] 1 drop OP BID Discontinued Cephalexin Mh 500 mg [Keflex 500 mg] 500 mg PO UD PRN PRN Reason: prophylaxis Instructions: Bronchitis Additional Instructions: follow up with family doctor in 1 week Follow up with: JORDYN SHEA MD [Primary Care Provider] - Call for Appointment Forms: Patient Portal Information
== END 2016-10-24 16:30 | disposition home or self-care (01) | DRG 195 ==
LOC: MED SURG 09:28 → OBSVTOIN 10-20 09:28
PROVIDERS: ADMIT Family Medicine; ATTEND Family Medicine
DX: J18.9 Pneumonia, unspecified organism (principal); J20.9 Acute bronchitis, unspecified; R09.02 Hypoxemia; M19.90 Unspecified osteoarthritis, unspecified site; M79.7 Fibromyalgia; F32.9 Major depressive disorder, single episode, unspecified
CPT/HCPCS: 36415; 71020; 80053; 83605; 83880; 85025; 87040; 87070; 87077; 87186; 87631; 94640; 94760; G0378; J0456; J0696; J1650; J1956; J2920; A9270-GY

== ENCOUNTER 2018-10-19 19:15 | Emergency (ER) | payer BC, MEDICARE ==
--- NOTE | 2018-10-19 19:21 | ERPHSYRPT ---
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 pt did not lose consciousness. pt complains of head, face, neck, right wrist and left knee pain. 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 ems brought pt in with c collar in place. Occurred: just prior to arrival Reason for Fall: tripped Injuries/Pain Location: head, face, neck, upper extremity (right wrist), lower extremity (left ant knee) Loss of Consciousness: no loss of consciousness Quality: aching Severity of Pain-Max: mild Severity of Pain-Current: mild Associated Symptoms (Fall): extremity injury, headache, neck pain, No abdominal pain, No back pain, No confusion, No chest pain Allergies/Adverse Reactions: amoxicillin trihydrate [From Augmentin] Allergy (Verified 05/22/14 17:13) benzonatate [From Tessalon Perles] Allergy (Verified 05/22/14 17:13) cefazolin sodium [From Ancef] Allergy (Verified 05/22/14 17:13) diflunisal [From Dolobid] Allergy (Verified 05/22/14 17:13) oxycodone HCl [From Percocet] Allergy (Verified 05/22/14 17:13) potassium clavulanate [From Augmentin] Allergy (Verified 05/22/14 17:13) gabapentin [From Neurontin] Adverse Reaction (Verified 05/22/14 17:13) morphine Adverse Reaction (Verified 05/22/14 17:13) Home Medications: Acetaminophen [Tylenol Extra Strength] 500 mg PO TID 03/31/14 [History] Biotin [Efrain Biotin] 10,000 mcg PO DAILY 03/31/14 [History] Bupropion HCl [Wellbutrin Xl] 300 mg PO DAILY 03/31/14 [History] Carboxymethylcellulos/Glycerin [[employer]vs Lubricating Eye Drops] 0.4 ml OP UD PRN [History] Cholecalciferol (Vitamin D3) [Vitamin D3] 1,000 unit PO BID 03/31/14 [History] Duloxetine HCl [Cymbalta] 60 mg PO EVENING MEAL 03/31/14 [History] Fluticasone Propionate [Flonase NASAL] 16 gm NS DAILY PRN 03/31/14 [ History] Hydroxychloroquine Sulfate [Plaquenil] 200 mg PO BID 03/31/14 [History] Hyoscyamine Sulfate 0.125 mg [Anaspaz 0.125 mg] 0.125 mg SL QID PRN [History] Magnesium Oxide 400 mg [Mag-Ox 400] 400 mg PO BID 03/31/14 [History] Menthol/Camphor [Mentholatum Ointment] 30 gm TP DAILY PRN PRN 03/31/14 [History] Metaxalone [Skelaxin] 400 mg PO TID PRN 03/31/14 [History] Multivitamin [Xsw-Wtadby-Mvvmw] 1 each PO DAILY 03/31/14 [History] Naratriptan HCl [Naratriptan] 2.5 mg PO DAILY PRN PRN 03/31/14 [History] PANTOPRAZOLE 40 mg Tablet [Protonix 40MG Tablet] 40 mg PO DAILY 03/31/14 [ History] Pilocarpine HCl [Salagen] 7.5 mg PO QID 03/31/14 [History] Potassium Chloride 20 Meq Tab [Potassium Chloride 20 MEQ TABLET] 20 meq PO DAILY 03/31/14 [History] Pravastatin Sodium 40 mg PO QHS 03/31/14 [History] Saliva Substitute Combo No.5 [Neutrasal] 538 mg MM QID 03/31/14 [History] Sodium Chloride [Saline [place]] 60 ml MC DAILY PRN PRN 03/31/14 [History] Sodium Fluoride/Potassium Nit [Prevident 5000 Sensitive Paste] 100 ml DT BID [History] Sumatriptan Succinate [Imitrex] 6 mg SQ DAILY PRN PRN 03/31/14 [History] Triamcinolone Acetonide 0.1% [Kenalog 0.1% Ointment] 15 gm TP BID PRN 03/31 [History] Zolpidem Tartrate [Ambien Cr] 12.5 mg PO HS 03/31/14 [History] Ferrous Sulfate 325 mg PO EVENING MEAL 05/22/14 [History] Diclofenac Sodium [Voltaren] 2 gr TOP QID PRN 10/19/16 [History] Sodium Chloride [Shahla-128] 1 g OP DAILY PRN PRN 10/19/16 [History] Tamsulosin HCl 0.4 mg PO LUNCH 10/19/16 [History] hydroCHLOROthiazide [Hydrochlorothiazide] 12.5 mg PO DAILY 10/19/16 [History] Timolol Maleate 0.5% Eye [Timoptic 0.5% 5 ml Ophthalmic] 1 drop OP BID 10/31 [History] Hx Tetanus, Diphtheria Vaccination/Date Given: Yes Hx Influenza Vaccination/Date Given: Yes Hx Pneumococcal Vaccination/Date Given: Yes - Review of Systems Constitutional: No Symptoms Eyes: Eye Pain (mild right) Ears, Nose, & Throat: No Symptoms Respiratory: No Symptoms Cardiac: No Symptoms Abdominal/Gastrointestinal: No Symptoms Genitourinary Symptoms: No Symptoms Musculoskeletal: Fall, Injury (right wrist and left ant knee) Neurological: Headache, No Dizziness Psychological: Anxiety Endocrine: No Symptoms Hematologic/Lymphatic: No Symptoms Immunological/Allergic: No Symptoms All Other Systems: Reviewed and Negative - Past Medical History Pertinent Past Medical History: Yes Neurological History: Migraines ENT History: Glaucoma Cardiac History: High Cholesterol Respiratory History: Bronchitis, Pneumonia Endocrine Medical History: Other Musculoskeletal History: Arthritis, Fibromyalgia, Other GI Medical History: Irritable Bowel History: Other Psycho-Social History: Depression, Other Female Reproductive Disorders: No Pertinent History Other Medical History: HIP DYSPLASIA, arthralgia, myalgia. sjogrens, sometimes needs to cath herself d/t urinary retention (last done in 2011) [place] syndrome - Past Surgical History Past Surgical History: Yes Neuro Surgical History: No Pertinent History Cardiac: No Pertinent History Respiratory: No Pertinent History Gastrointestinal: No Pertinent History Genitourinary: No Pertinent History Musculoskeletal: Joint Replacement, Orthopedic Surgery Other Surgical History: STIMULATOR IMPLANT, sinus surgery, t&a, Hepatitis pt unsure what type . abd dilaudid pain pump. - Social History Smoking Status: Never smoker Exposure to second hand smoke: No Drug Use: none Patient Lives Alone: No - Nursing Vital Signs Nursing Vital Signs: Initial Vital Signs Pulse Rate 102 H 10/19/18 19:21 Respiratory Rate 18 10/19/18 19:21 Blood Pressure 86/62 10/19/18 19:21 O2 Sat by Pulse Oximetry 100 10/19/18 19:21 Pain Scale Pain Intensity 4 - Lillie Coma Score Best Eye Response (Lillie): (4) open spontaneously Best Verbal Response (Monroe): (5) oriented Best Motor Response ([place]): (6) obeys commands [place] Total: 15 - Physical Exam General Appearance: mild distress, alert, anxiety Head Injury: contusions, ecchymosis (facial right side of eye and cheek, forehead), swelling, tenderness ENT Exam: airway nml, No evidence of ENT injury, No dental injury Neck Exam: trachea midline, muscle spasm, stiff neck, tenderness, c-collar in place, No focal neuro deficit Respiratory/Chest Exam: No chest tenderness, No normal breath sounds, No respiratory distress, No ecchymosis, No crepitus, No decreased breath sounds Cardiovascular Exam: normal heart sounds, regular rate/rhythm Gastrointestinal Exam: soft, normal bowel sounds, No tenderness, No guarding, No ecchymosis Rectal Exam: not done Back Exam: normal inspection, normal range of motion, No CVA tenderness, No vertebral tenderness Extremity Exam: bony point tenderness (right wrist and left ant knee), pain with movement, tenderness, No pedal edema Neurologic Exam: alert, oriented x 3, cooperative, 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, normal mood/affect, sensation nml Skin Exam: ecchymosis (as above) SpO2 Interpretation: normal O2 Delivery: Room Air Ordered Tests: Active Orders 24 hr Category Date Time Status CERVICAL SPINE WO CONTRAST [CT] Stat Exams 10/19/18 19:31 Taken FACIAL BONES WO CONTRAST [CT] Stat Exams 10/19/18 19:31 Taken HEAD WITHOUT CONTRAST [CT] Stat Exams 10/19/18 19:31 Taken KNEE (1 OR 2 VIEW) Stat Exams 10/19/18 19:33 Taken WRIST (MIN 3 VIEWS) Stat Exams 10/19/18 19:33 Taken - Progress Progress: improved, pain not gone completely, re-examined Progress Note: 10/19/18 21:18 ct head, face and c spine-negative for acute processes xray left knee-negative for acute fx or dislocation xray right wrist-? avulsion fx trapezius Counseled pt/family regarding: diagnosis, need for follow-up, rad results - Departure Departure Disposition: Home Clinical Impression: Fall, Contusion, Avulsion fracture of right wrist Condition: Stable Critical Care Time: No Referrals: JORDYN SHEA MD [Primary Care Provider] - Additional Instructions: ice pack to all sites of pain 3 times daily for 2 days. follow up with primary doctor for further management of your pain. follow up with orthopedic surgeon tomorrow regarding treatment of wrist fracture. Prescriptions: Oxycodone HCl/Acetaminophen [Percocet 5-325 mg Tablet] 1 each PO Q12H PRN PRN # 6 tablet MDD 2 PRN Reason: Pain
[2018-10-19] MEDS ORDERED: PERCOCET TABLET 5/325MG PO STA (21:32)
[2018-10-19] MEDS ORDERED: PERCOCET TABLET 5/325MG ONE (21:37)
[2018-10-19] MEDS ORDERED: Tylenol #3 Tablet PO ONE (21:42)
[2018-10-19] MEDS ORDERED: Tylenol #3 Tablet ONE (21:48)
[2018-10-19 22:12] VITALS: BP 129/68; PULSE 89; O2SAT 100
--- NOTE | 2018-10-20 08:35 | XRAY ---
Indication: Pain following fall. Comparison: None AP/lateral left knee demonstrates moderate/advanced tricompartmental degenerative changes, greatest lateral compartment. Also small nonspecific effusion, partially visualized proximal femur orthopedic hardware, and posterior fabella. No other bony, articular, or soft tissue abnormalities.
--- NOTE | 2018-10-20 08:37 | XRAY ---
Indication: Pain following fall. Comparison: None 3 views of the right wrist demonstrates mild radiocarpal joint space narrowing, moderate 1st metacarpal trapezium scaphoid degenerative changes, and tiny anterior/posterior well-circumscribed heterotopic ossifications. Query tiny minimally displaced posterior lunate cortical fracture. Remaining wrist unremarkable.
--- NOTE | 2018-10-20 08:39 | XRAY ---
Indication: Head injury following fall. Multiple contiguous axial images obtained through the head without contrast. Comparison: None Ventriculosulcal pattern appears symmetric. Mild periventricular degenerative micro-ischemia bilaterally within normal limits for patient's age. No acute intracranial hemorrhage, abnormal extra-axial fluid collection, or mass effect. Fourth ventricle is midline without hydrocephalus. Bony calvarium intact. Minimal right forehead scalp soft tissue swelling. Mild mucosal thickening of both ethmoid and lesser degree left sphenoid sinuses. Mastoid air cells are clear. Impression: 1. Degenerative micro-ischemia and paranasal sinus disease. 2. Right frontal scalp soft tissue swelling without fracture. 3. No acute intracranial abnormalities. CT DI 49.11
--- NOTE | 2018-10-20 08:43 | XRAY ---
Indication: Pain following fall. Multiple contiguous axial images obtained through the cervical spine. Sagittal and coronal reformatted images obtained. Comparison: None Axial images negative for acute fracture, suspicious bony lesions, or spinal canal stenosis. Moderate/advanced multilevel endplate spurring, greatest at C6-C7. Also mild/moderate multilevel bilateral degenerative facet hypertrophy. Sagittal and coronal reformatted images demonstrates mild lordotic reversal, positional versus paraspinal spasm. Multilevel disc space loss. Also 4-5 mm C3 anterolisthesis on C4. No acute compression fracture or jumped facet. Normal appearing craniocervical junction. Visualized noncontrasted soft tissues including lung apices unremarkable. Impression: 1. Cervical lordotic reversal, positional versus paraspinal spasm. Negative for acute fracture. 2. Multilevel degenerative spondylosis including grade 1 C4 spondylolisthesis. CTDI 72.41
--- NOTE | 2018-10-20 08:47 | XRAY ---
Indication: Head injury following fall. Multiple contiguous axial images obtained through the facial bones. Sagittal and coronal reformatted images obtained. Comparison: None There are multiple bilateral dental amalgams producing beam artifact. Axial images negative for acute fracture, suspicious bony lesions, or radiopaque foreign body. Orbits including roof, leary, and floors intact. Mild mucosal thickening of both ethmoid and lesser degree left sphenoid sinuses without fluid leveling. There has been bilateral maxillary sinus antrectomy. There is nasal passage congestion bilaterally. Mild nasal septal deviation to the left. Condyles of the mandible appears slightly subluxed anteriorly, right greater than left. CT head and CT cervical spine reported separately. Impression: 1. Negative for acute fracture. 2. Bilateral mandible condyle subluxation. 3. Incidental paranasal sinus disease. CT DI 59.47
== END 2018-10-19 22:16 | disposition home or self-care (01) ==
LOC: ED 19:15
DX: S62.101A Fracture of unspecified carpal bone, right wrist, initial encounter for closed fracture (principal); S00.83XA Contusion of other part of head, initial encounter; M54.2 Cervicalgia; W18.30XA Fall on same level, unspecified, initial encounter; M25.562 Pain in left knee; Z79.899 Other long term (current) drug therapy; E78.00 Pure hypercholesterolemia, unspecified
CPT/HCPCS: 70450; 70486; 72125; 73110; 73560; 99284; L3908; A9270-GY

== ENCOUNTER 2023-04-21 06:12 | Day surgery (SDC) | payer BC, MEDICARE ==
[2023-04-21] MEDS ORDERED: Lactated Ringers 1,000 ML IV SCH (06:30)
[2023-04-21 06:55] VITALS: RESP 18; TEMP 97.4; O2SAT 99
[2023-04-21 07:16] LABS: Absolute Neutrophil Ct (ANC) 1.66 x10^3/uL (1.4-6.9); BASOPHIL % 1.1 % (0.0-0.4); Basophil (Absolute #) 0.04 x10^3/uL (0-0.4); Eosinophil % 6.8 % (0.00-5.0); Eosinophil (Absolute #) 0.24 x10^3/uL (0-0.5); Hematocrit 36.3 % (35-47); Hemoglobin 11.5 g/dL (12.0-16.0); IMMATURE GRAN # 0.01 x10^3u/L (0.00-0.03); IMMATURE GRAN % 0.3 % (0.00-0.4); Lymphocyte (Absolute #) 1.09 x10^3/uL (1.0-4.6); Lymphocytes % 30.8 % (24.0-44.0); Mean Cell Volume 95.8 fL (78-100); Mean Corpuscular Hemoglobin 30.3 pg (26-32); Mean Corpuscular Hgb Concent. 31.7 g/dL (32-36); Monocytes % 14.1 % (0.0-12.0); Neutrophil % 46.9 % (36.0-66.0); Platelet Count 212 x10^3/uL (150-450); Red Blood Count 3.79 x10^6/uL (4.1-5.4); Red Cell Distribution Width 12.9 % (11.5-14.0); White Blood Count 3.5 x10^3/uL (4.0-10.5)
[2023-04-21 07:30] LABS: ALBUMIN 4.4 g/dL (3.5-5.0); ANION GAP 8.8 MEQ/L (5-15); BILIRUBIN,TOTAL 0.8 mg/dL (0.2-1.3); Calcium 9.4 mg/dL (8.4-10.2); Creatinine 1 0.4 mg/dL (0.52-1.04); EST GLOMERULAR FILTRATION RATE 110.5 ML/MIN; Potassium 3.7 mmol/L (3.5-5.1); Total Protein 7.7 g/dL (6.3-8.2)
[2023-04-21] MEDS ORDERED: DIPRIVAN 200 MG/20 ML IV ONE ×2 (08:17→08:19)
[2023-04-21] MEDS ORDERED: Lactated Ringers 1,000 ML IV ONE (08:46)
[2023-04-21 09:27] VITALS: BP 143/74; PULSE 68
--- NOTE | 2023-04-21 10:51 | OP ---
SURGERY DATE/TIME: 04/21/2023 0808 PREOPERATIVE DIAGNOSIS: Positive Cologuard. POSTOPERATIVE DIAGNOSIS: Descending colon polyp. PROCEDURE: Colonoscopy. SURGEON: Erwin Thompson M.D. ANESTHESIA: MAC by Isac Lopez CRNA. ESTIMATED BLOOD LOSS: Minimal. SPECIMENS: Hot forceps polypectomy from the descending colon. DESCRIPTION OF PROCEDURE: After informed written consent was obtained, the patient was taken to the endoscopy suite. She was placed in left lateral decubitus position and anesthesia was titrated to desired level of consciousness. Digital rectal exam showed normal sphincter tone with external hemorrhoids, no internal lesions. The scope was inserted into the rectum and sequentially the entire colonic mucosa was traversed. The level of cecum was reached and verified with direct visualization of the ileocecal valve. Upon withdrawal careful mucosal inspection revealed small sessile polyp in the proximal descending colon this is grasped with forceps, cauterized and removed in its entirety. The remainder of the procedure was unremarkable. Prior to withdrawal retroflexion was performed and showed no internal lesions. The scope was removed. The patient was transferred to the recovery room in good condition. She will follow up in a week for pathology results.
== END 2023-04-21 09:58 | disposition home or self-care (01) ==
LOC: SDC 06:12
PROVIDERS: ATTEND Family Medicine
DX: D12.4 Benign neoplasm of descending colon (principal); R19.5 Other fecal abnormalities; K64.4 Residual hemorrhoidal skin tags
CPT/HCPCS: 36415; 80053; 85025; 93005; J2704